=== PATIENT | female | born 1950 | race Caucasian/White ===

== ENCOUNTER 2017-02-19 06:51 | Emergency (ER) | payer OTHER ==
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
[~2017-02-19 06:51] MED LIST: ACIPHEX20 MG; ALENDRONATE SOD10 MG PO; ALENDRONATE SOD70 MG PO; ARICEPT5 M1 PO; BAYER ASPIRIN325 M1 PO; BENZONATATE PO; CARDURA; CLARITIN10 MG; DARVOCET-N 1001 TAB; DEPRESSION MED; DITROPAN5 MG PO; FLEXERIL; FLEXERIL PO; FLEXERIL10 MG; FLEXERIL10 MG PO; FLUOXETINE HCL20 M1; FOSAMAX PO; FOSAMAX70 MG PO; FOSINOPRIL; HCTZ; HCTZ PO; HYDROCHLOROTHIA25 MG PO; IBUPROFEN; INDERAL20 MG PO; KETOPROFEN PO; LEVOTHYROXINE150 MCG PO; LIPITOR; LISINOPRIL; LISINOPRIL20 MG PO; LORTAB 10-5001 EACH PO; LORTAB 10/500 T1 TAB; LORTAB 5/500 TA1 TA1 PO; MEDROL DOSEPAK4 MG PO; MEDROL PO; MYSOLINE50 M2 PO; NAPROXEN PO; NORVASC; NORVASC2.5 MG PO; OYSTER CALCIUM500 MG; PAROXETINE HCL20 M1 PO; PAROXETINE HCL20 MG PO; PAXIL; PHENOL-SODIUM180 M1 PO; PROPRANOLOL HCL20 MG; SYNTHROID; SYNTHROID PO; SYNTHROID175 MCG PO; TYLOX1 CAP 5/50 PO; VICODIN 5/1 TAB 5/50 PO; VIT C; ZANTAC150 MG; ZESTRIL30 MG PO; ZITHROMAX PO; ZITHROMAX1 G/PKT PO; ZOFRAN PO; ZYRTEC; [UNRECOGNIZED DRUG - SUPPLY]
[2017-02-19 09:03] LABS: BASOPHIL# 0.1 X10e3 (0-0.3); EOSINOPHIL# 0.1 X10e3 (0-0.7); EOSINOPHIL% 1.2 % (0.0-7.0); HEMATOCRIT 42.3 % (35.0-45.0); HEMOGLOBIN 14.4 gm/dL (12.0-16.0); LYMPHOCYTE# 1.8 X10e3 (1.0-3.5); LYMPHOCYTE% 26.3 % (17.0-45.0); MEAN CELL VOLUME 93.3 FL (83-96); MEAN CORPUSCULAR HEMOGLOBIN 31.7 PG (28-34); MEAN PLATELET VOLUME 9.1 FL (6.5-11.5); MONOCYTE# 0.5 X10e3 (0-1.0); MONOCYTE% 6.6 % (3.0-12.0); NEUTROPHIL# 4.5 X10e3 (1.5-7.1); NEUTROPHIL% 64.9 % (40-75); PLATELET COUNT 191 X10e3 (140-420); RED BLOOD COUNT 4.53 X10e (3.90-5.30); RED CELL DISTRIBUTION WIDTH 13.6 % (11.0-15.5)
[2017-02-19 09:10] LABS: DIFF IND NO
[2017-02-19 09:25] LABS: ALBUMIN SERUM 3.9 g/dL (3.5-5.0); BILIRUBIN,TOTAL 0.9 mg/dL (0.2-2.0); BUN/CREATININE RATIO 21.42; CALCIUM SERUM 9.1 mg/dL (8.4-10.2); CREATININE SERUM 0.7 mg/dL (0.6-1.4); GLOM FILT RATE Estimated 90.9 mL/min (>60); POTASSIUM 3.1 mmol/L (3.5-5.1); PROTEIN TOTAL SERUM 6.6 g/dL (6.0-8.3)
== END 2017-02-19 12:08 | disposition home or self-care (01) ==
LOC: CED 06:51
PROVIDERS: Nurse Practitioner
DX: S13.4XXA Sprain of ligaments of cervical spine, initial encounter (principal); S23.3XXA Sprain of ligaments of thoracic spine, initial encounter; S33.5XXA Sprain of ligaments of lumbar spine, initial encounter; S60.219A Contusion of unspecified wrist, initial encounter; I10 Essential (primary) hypertension; E03.9 Hypothyroidism, unspecified; V43.52XA Car driver injured in collision with other type car in traffic accident, initial encounter; Y92.410 Unspecified street and highway as the place of occurrence of the external cause
CPT/HCPCS: 71020; 72072; 72125; 72170; 73090; 73110; 80053; 85025; 99284; J1170; J2405

== ENCOUNTER 2017-03-06 17:14 | Emergency (ER) | payer OTHER ==
[~2017-03-06] VITALS: Ht 144.8 cm; Wt 68.0 kg
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
--- NOTE | ~2017-03-06 | EKG ---
PATIENT: ALEXIS GILLIS UNIT #: [id number] Ventricular Rate: 57 BPM Atrial Rate: 57 BPM P-R Interval: 168 ms QRS Duration: 98 ms Q-T Interval: 454 ms QTC Calculation(Bezet): 441 ms P [place]: 33 degrees Calculated R [place]: -24 degrees Calculated T [place]: 121 degrees Diagnosis Line: Sinus bradycardia Diagnosis Line: Inferior infarct , age undetermined Diagnosis Line: Cannot rule out Anterior infarct , age Diagnosis Line: undetermined Diagnosis Line: ST and T wave abnormality, consider lateral ischemia Diagnosis Line: Abnormal ECG Diagnosis Line: When compared with ECG of 26-JUN-2015 06:23, Diagnosis Line: Inferior infarct is now Present Diagnosis Line: Confirmed by GLEN GONZALEZ MD ([id number]) on Diagnosis Line: 03/07/2017 5:41:43 PM INTERPRETING MD: LISA LAZO
[2017-03-06 20:10] LABS: URINE SOURCE CLEAN CATCH
[2017-03-06 20:16] LABS: BASOPHIL# 0.1 X10e3 (0-0.3); EOSINOPHIL# 0.1 X10e3 (0-0.7); EOSINOPHIL% 2.5 % (0.0-7.0); HEMATOCRIT 44.8 % (35.0-45.0); HEMOGLOBIN 15.4 gm/dL (12.0-16.0); LYMPHOCYTE# 2.2 X10e3 (1.0-3.5); LYMPHOCYTE% 38.5 % (17.0-45.0); MEAN CELL VOLUME 93.4 FL (83-96); MEAN CORPUSCULAR HEMOGLOBIN 32.1 PG (28-34); MEAN CORPUSCULAR HGB CONC 34.4 g/dL (30-36); MEAN PLATELET VOLUME 8.8 FL (6.5-11.5); MONOCYTE# 0.3 X10e3 (0-1.0); MONOCYTE% 5.9 % (3.0-12.0); NEUTROPHIL% 52.1 % (40-75); PLATELET COUNT 225 X10e3 (140-420); RED CELL DISTRIBUTION WIDTH 14.1 % (11.0-15.5); WHITE BLOOD COUNT 5.8 X10e3 (4.0-10.5)
[2017-03-06 20:18] LABS: URINE APPEARANCE CLEAR; URINE BILIRUBIN NEG (NEG); URINE BLOOD NEG (NEG); URINE COLOR YELLOW; URINE GLUCOSE NEG (NEG); URINE KETONE NEG (NEG); URINE LEUKOCYTE ESTERASE TRACE (NEG); URINE NITRATE POS (NEG); URINE PROTEIN NEG (NEG); URINE SPECIFIC GRAVITY 1.022 (1.003-1.035); URINE UROBILINOGEN 0.2 MG/DL (NEG)
[2017-03-06 20:21] LABS: CULTURE INDICATED? YES; DIFF IND NO; U HYALINE CASTS AUWI 0-2 /[LPF]; URINE BACTERIA AUWI 4+ (NEGATIVE); URINE SQUAMOUS EPITHELIAL CELL OCC /[HPF]
[2017-03-06 20:29] LABS: AMPHETAMINE NEG (NEG); BARBITURATES NEG (NEG); BENZODIAZEPINES NEG (NEG); COCAINE NEG (NEG); MARIJUANA NEG (NEG); OPIATES NEG (NEG); TRICYCLIC ANTIDEPRESSANTS NEG (NEG); U METHADONE NEG (NEG)
[2017-03-06 20:30] LABS: POC - CKMB 2.2 ng/mL (0.0-7.9); POC - TROPONIN <0.05 ng/mL (<=0.05)
[2017-03-06 20:38] LABS: PARTIAL THROMBOPLASTIN TIME 26.1 SECONDS (23.5-31.3); PROTHROMBIN TIME (PATIENT) 10.6 SECONDS (10.0-11.7)
[2017-03-06 20:42] LABS: AMYLASE 35 U/L (0-46); LIPASE 42 U/L (22-51)
[2017-03-06 20:43] LABS: ALBUMIN SERUM 4.2 g/dL (3.5-5.0); BILIRUBIN, DIRECT 0.1 mg/dL (0.0-0.2); BILIRUBIN,INDIRECT 0.7 mg/dL (0.0-0.9); BILIRUBIN,TOTAL 0.8 mg/dL (0.2-2.0); BUN/CREATININE RATIO 22.85; CALCIUM SERUM 8.9 mg/dL (8.4-10.2); CREATININE SERUM 0.7 mg/dL (0.6-1.4); GLOM FILT RATE Estimated 90.3 mL/min (>60); POTASSIUM 3.6 mmol/L (3.5-5.1); PROTEIN TOTAL SERUM 7.4 g/dL (6.0-8.3)
== END 2017-03-06 21:38 | disposition home or self-care (01) ==
LOC: CFTX 17:14 → CED 17:14 → CFTX 20:34
PROVIDERS: Nurse Practitioner
DX: R07.89 Other chest pain (principal); Z88.5 Allergy status to narcotic agent; M54.2 Cervicalgia; M54.9 Dorsalgia, unspecified; G89.29 Other chronic pain; J40 Bronchitis, not specified as acute or chronic
CPT/HCPCS: 36415; 71020; 80048; 80076; 80307; 81003; 82150; 82553; 83690; 84484; 85025; 85379; 85610; 85730; 87086; 87088; 87186; 93005; 96374; 99285; J1885